=== PATIENT | male | born 1965 | race African-American/Black ===

== ENCOUNTER 2017-03-05 10:44 | Emergency (ER) | payer OTHER ==
[~2017-03-05] VITALS: Ht 167.6 cm; Wt 104.9 kg
[2017-03-05 11:03] VITALS: TEMP 36.5; Ht 167.6 cm; Wt 104.9 kg
[2017-03-05] MEDS ORDERED: LISI-725 PO (11:08)
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
[2017-03-05 13:53] VITALS: BP 165/120; PULSE 92; O2SAT 96
== END 2017-03-05 13:55 | disposition home or self-care (01) ==
LOC: C.EDB 10:46 → C.EDD 13:55
DX: R51 Headache (principal); M54.5 Low back pain; V43.62XA Car passenger injured in collision with other type car in traffic accident, initial encounter